=== PATIENT | male | born 1990 | race Caucasian/White ===

== ENCOUNTER 2023-12-31 08:09 | Outpatient (AMB) | payer OTHER, SELFPAY ==
--- NOTE | 2023-12-31 08:10 | AM.OFFWIN_ITS ---
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 Pt states something popped in my knee Started yesterday while running Patient Tobacco Use Status: Never used Tobacco Allergies No Known Allergies Allergy (Verified 12/31/23 08:10) Do you need a note to return to daycare/school/sports/work: No HPI HPI Comments History of Present Illness Details 33 y/o male patient who presents to walk in clinic with c/o right knee pain since yesterday. He was running when he felt POP and sharp pain which radiates to the back of the knee. Describes pain as very sharp, hard to walk, stand or dangling legs to the ground. PFSH Social History Patient Tobacco Use Status: Never used Tobacco Review of Systems Const All systems reviewed & are unremarkable except as noted in HPI and below Physical Exam Vital Signs: Last Vital Signs Temp 98.0 F 12/31/23 08:11 Pulse 66 12/31/23 08:11 BP 116/70 12/31/23 08:11 Pulse Ox 98 12/31/23 08:11 Oxygen Delivery Method Room Air 12/31/23 08:11 BMI result Body Mass Index 27.9 Const General: no acute distress; No comfortable Nutritional Appearance: well nourished Orientation/consciousness: patient oriented x3 Neuro Other: Walks with a slight limp General: patient oriented x3 and moves all extremities Extrem Right lower extremity: normal to inspection, normal capillary refill and knee Details: tenderness Location: of the patella Details: medially and of the popliteal fossa and abnormal ROM Details: pain with active ROM during Details: in extension and in flexion, pain with passive ROM during Details: in flexion and unable to extend lower leg actively; no swelling, no crepitus, no deformity and no unusual warmth Left lower extremity: normal to inspection and full ROM Psych Speech and movement: Normal speech and movement present Assessment & Plan Assessment & Plan (1) Strain of right knee: Code(s): S86.911A - Strain of unspecified muscle(s) and tendon(s) at lower leg level, right leg, initial encounter Qualifiers: Encounter type: initial encounter Qualified Code(s): S86.911A - Strain of unspecified muscle(s) and tendon(s) at lower leg level, right leg, initial encounter Plan: - Knee Brace for support - Ice/Hot - Acetaminophen or Ibuprofen for pain relief - Reviewed Xray images, preliminary no Fracture seen. - Pt reports severe pain and wishes to go to Emergency room for MRI. Coding Level of Care Code New Pt Level 3 (83822) Diagnoses Strain of right knee, initial encounter S86.911A Encounter type: initial encounter Time Spent (min) 15
[2023-12-31 08:11] VITALS: BP 116/70; PULSE 66; TEMP 36.7; O2SAT 98; BMI 27.9
== END 2023-12-31 09:16 | disposition home or self-care (01) ==
PROVIDERS: PCP Pediatrics; Visit Provider Nurse Practitioner Family
DX: S86.911A Strain of unspecified muscle(s) and tendon(s) at lower leg level, right leg, initial encounter (principal)
CPT/HCPCS: 99203

== ENCOUNTER 2023-12-31 08:26 | Outpatient (REF) | payer OTHER, SELFPAY ==
--- NOTE | ~2023-12-31 | XR_ITS ---
EXAMINATION: XR KNEE, RIGHT CLINICAL INFORMATION: 1 day of the right knee pain. [place] pop while running yesterday. COMPARISON: None available. TECHNIQUE: Four views of the right knee. FINDINGS: A small knee joint effusion is present. No fracture. Alignment is anatomic. Joint spaces are maintained. No abnormal soft tissue calcification. XR/XR knee RT 4V IMPRESSION: Small knee joint effusion. No fracture or malalignment.
== END 2023-12-31 08:27 | disposition home or self-care (01) ==
LOC: HO.HMGCX 08:26
PROVIDERS: Visit Provider Nurse Practitioner Family
DX: S86.911A Strain of unspecified muscle(s) and tendon(s) at lower leg level, right leg, initial encounter (principal)
CPT/HCPCS: 73564

== ENCOUNTER 2024-01-01 09:36 | Outpatient (AMB) | payer OTHER, SELFPAY ==
[2024-01-01 09:40] VITALS: BMI 27.9
--- NOTE | 2024-01-01 09:40 | MHC.OFFVIS ---
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 Patient reports he was running and he heard pop in his knee. Currently he is having sharp pain on the front of the knee and behind. Pain is worse when applying pressure to the knee. Having off and on numbness and tingling since the injury. 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 The patient presented to [facility] on 12/[facility]/2023 with a complaint of pain behind the right knee. He reported ?something popped? while running on 12/30/2023. X-rays were obtained. He was placed in an unspecified knee brace for support.? ? While in the office today, the patient reports he was running when he heard a ?pop? from the right knee. He indicates his pain is located along the anterior and posterior aspects of the right knee and describes his pain?as being ?sharp?. He claims to have an increase in pain when applying pressure. He also reports intermittent numbness and tingling that has been present since the injury. ? [facility] Social History (Updated 01/01/24 @ 09:46 by Violette Navarro) Alcohol intake: current Alcohol intake frequency: holidays/special occasions only Patient Tobacco Use Status: Never used Tobacco Current occupational status: employed Current occupation: [employer] Review of Systems Const All systems reviewed & are unremarkable except as noted in HPI and below Physical Exam Vital Signs: BMI result Body Mass Index 27.9 Const General: cooperative and no acute distress Orientation/consciousness: patient oriented x3 Resp Effort & Inspection: normal respiratory effort and able to speak in complete sentences Cardio Peripheral pulses: Peripheral pulses 2+ throughout Skin General skin exam: no rashes or lesions noted Neuro General: patient oriented x3 Extrem Other: Right knee: Mild effusion. No ecchymosis or erythema. No tenderness to palpation along the medial or lateral joint lines. Full extension.?Able to perform about 45 degrees of flexion, however, beyond this point his right knee locks. Unable to access Steiman?s or anterior drawer due to ROM restrictions. NVI.? Assessment & Plan Assessment & Plan (1) Acute meniscal injury of right knee: Code(s): S83.8X1A - Sprain of other specified parts of right knee, initial encounter Category: Medical Plan Mr. Haney is a 33-year-old male who presents in the office today, as a new patient, for an evaluation of right knee pain. The patient presented to the [facility] on 12/31/2023 with a complaint of pain behind the right knee. He reported ?something popped? while running on 12/30/2023. X-rays were obtained. He was placed in an unspecified knee brace for support.? ? While in the office today, the patient reports he was running when he heard a ?pop? from the right knee. He indicates his pain is located along the anterior and posterior aspects of the right knee and describes his pain?as being ?sharp?. He claims to have an increase in pain when applying pressure. He also reports intermittent numbness and tingling that has been present since the injury.? ? The patient will be referred for a stat MRI for question of a bucket handle meniscal tear with active locking. He was given the information to notify the office once the MRI is obtained. Follow-up will be after the stat MRI is obtained, or sooner if needed. ? ? X-rays of the right knee, obtained on 12/31/2023, revealed: ? Small knee joint effusion. No fracture or malalignment.? Orders: Orders MR knee RT wo con Today S83.8X1A - Sprain of other specified parts of right knee, initial encounter Patient Instructions: Scribed by Mitzy Aguilera medical office assistant, for Marisol Martines PA-C on 01/01/2024 at 9:45 am, EST.? Coding Level of Care Code New Pt Level 4 (92814) Diagnoses Acute meniscal injury of right knee S83.8X1A
== END 2024-01-01 10:07 | disposition home or self-care (01) ==
PROVIDERS: Visit Provider Physician Assistant
DX: S83.8X1A Sprain of other specified parts of right knee, initial encounter (principal)
CPT/HCPCS: 99203

== ENCOUNTER → 2024-01-01 09:36 | Outpatient (BNVA) | payer OTHER, SELFPAY | PROVIDERS: Visit Provider Physician Assistant ==

== ENCOUNTER 2024-01-04 19:54 | Outpatient (REF) | payer OTHER, SELFPAY ==
--- NOTE | ~2024-01-04 | MR_ITS ---
EXAMINATION: MR KNEE WITHOUT CONTRAST, RIGHT CLINICAL INFORMATION: S83.8X1A - Sprain of other specified parts of right knee, initial encounter COMPARISON: None available. TECHNIQUE: MRI of the knee without contrast was performed using routine sequences on a high-field scanner. FINDINGS: MENISCI: Medial Meniscus: Intact Lateral Meniscus: Intact LIGAMENTS: Cruciate: There is partial tear of the PCL at its mid substance characterized by diminished thickening with marked increase intrasubstance signal and incomplete disruption of the fibers at the mid substance. ACL is intact. Collateral: Intact EXTENSOR MECHANISM: Intact ARTICULAR CARTILAGE/BONE: No fractures or osseous contusions. Marrow signal is normal. Small bone islands in the distal femoral metaphysis anteriorly and in the tibial plateau. Patellofemoral Compartment: Normal Medial Compartment: Normal Lateral Compartment: Normal JOINT FLUID AND BURSAE: Moderate-sized joint effusion. No Brown's cyst. Edema signal is present in the popliteal fossa posteriorly. MR/MR knee RT wo con IMPRESSION: 1. Partial tear of the PCL. 2. Moderate-sized joint effusion. 3. Intact menisci.
== END 2024-01-04 19:55 | disposition home or self-care (01) ==
LOC: HO.MRI 19:54
PROVIDERS: Visit Provider Physician Assistant
DX: S83.8X1A Sprain of other specified parts of right knee, initial encounter (principal)
CPT/HCPCS: 73721

== ENCOUNTER 2024-01-12 12:28 | Outpatient (AMB) | payer OTHER, SELFPAY ==
--- NOTE | 2024-01-12 12:29 | MHC.OFFVIS ---
Intake Visit Reasons: tele - right knee MRI review Intake Note: Efren is a 33 year old male who presents on the phone for a telehealth visit for a MRI review of his right knee. He states that he has been feeling sore and he has been working on it. Allergies No Known Allergies Allergy (Verified 01/12/24 12:30) HPI HPI tele - right knee MRI review: Details: 33-year-old male who presents today via telehealth for follow-up right knee and review his MRI imaging. While in the office via telehealth, the patient reports that he has been feeling sore but gradual improvement of pain. [facility] Social History (Updated 01/01/24 @ 09:46 by Violette Navraro) Alcohol intake: current Alcohol intake frequency: holidays/special occasions only Patient Tobacco Use Status: Never used Tobacco Current occupational status: employed Current occupation: [employer] Review of Systems Const All systems reviewed & are unremarkable except as noted in HPI and below Physical Exam Extrem Other: Deferred due to being a telehealth visit. Telehealth Telehealth Telehealth Platform: Telephone Location of provider rendering services: practice address Location of patient: address on file Patient Identification confirmed using: Name, : Yes Telehealth method: voice only Patient verbally consented to treatment: Yes Patient verbally consented to billing insurance company: Yes Patient informed of any privacy concerns related to visit: Yes Assessment & Plan Assessment & Plan (1) Partial tear of posterior cruciate ligament of knee: Code(s): S83.529A - Sprain of posterior cruciate ligament of unspecified knee, initial encounter Category: Medical Plan: Mr. Haney 33-year-old male who presents today via telehealth for follow-up of bucket handle meniscal tear of the right knee and review his MRI imaging. I last saw the patient in the office on 01/01/2024, when x-rays of the right knee were obtained.? While in the office via telehealth, the patient reports that he has been feeling sore and has been working on it.? A referral for physical therapy was made in the office today. Follow-up will be in 4-6 weeks, or sooner if needed.? An MRI of the right knee which were obtained on 01/04/2024 and were reviewed by me, Marisol Martines PA-C, revealed partial tear of the PCL, moderate-sized joint effusion and intact meniscus.? Orders: Orders PT Evaluation and Treatment Today S83.529A - Sprain of posterior cruciate ligament of unspecified knee, initial encounter Patient Instructions: Scribed by Petr Obrien medical and health services manager, for Marisol Martines PA-C on 01/12/2024 at?12:30 PM EST.? Coding Level of Care Code Tele Est Pt Level 3 (26579) Diagnoses Partial tear of posterior cruciate ligament of knee S83.529A
== END 2024-01-12 12:38 | disposition home or self-care (01) ==
LOC: HO.HOS 12:28
PROVIDERS: Visit Provider Physician Assistant
DX: S83.529A Sprain of posterior cruciate ligament of unspecified knee, initial encounter (principal)
CPT/HCPCS: 99213

== ENCOUNTER → 2024-01-12 12:28 | Outpatient (BNVA) | payer OTHER, SELFPAY | PROVIDERS: Visit Provider Physician Assistant ==

== ENCOUNTER 2024-02-16 16:00 | Outpatient (RCR) | payer OTHER, SELFPAY ==
--- NOTE | 2024-08-03 09:51 | MHC.PT.DC ---
[facility] [place] Office [place] Office [place] Office [address] Porsha Purcell [address] [phone] F: [phone] F: [phone] F: [phone] F: [phone] Physical Therapy Discharge Report Diagnosis: Partially torn PCL Date of Surgery: Date of Evaluation: 01/26/24 Date of Discharge: 02/22/24 Treatments to Date: 4 Cancellations to Date: No Shows to Date: Discharge Status: Patient Elected to Stop Discharge Summary: Pt elected to stop due to high co-pay 02/15; Pt fatigued after exs. Pt tish 1 x a week co pay is high. 02/01; Pt HS tight. Pt can flex knee better with ankle D/F. Pt fatigued after hip exs. Patient is a 33 year old R handed male who presents with s/s consistent with PCL sprain, knee pain. He works with daily job demands including concrete finishing. He also plays softball which is related to his mechanism of injuyr. Patient past medical history is otherwise unremarkable. Current impairments include pain, flexibility, ROM, strength, activity tolerance and functional mobility. Functional limitations include decreased ability to walk, negotiate stairs, squat, kneel, run and play softball. Patient is motivated with good rehab potential. Skilled PT will address impairments and functional limitations in order to achieve goals. Electronically signed by: Efrain Briones, PT Please sign and return to therapist. Thank you for your referral.
== END 2024-08-03 09:51 | disposition home or self-care (01) ==
LOC: HO.PTCHIC 16:00
PROVIDERS: Visit Provider Physician Assistant
DX: S83.521D Sprain of posterior cruciate ligament of right knee, subsequent encounter (principal)
CPT/HCPCS: 97110; 97140; 97161; 97535

== ENCOUNTER 2024-03-01 15:29 | Outpatient (AMB) | payer OTHER, SELFPAY ==
--- NOTE | 2024-03-01 15:32 | A.OFFVIS_ITS ---
Intake Visit Reasons: OV - right knee pain Intake Note: Efren is a 33 year old male who presents today for a follow up of his right knee pain, DOI 12/30/23. Patient reports he is doing better today. He is finding relief with using his brace when he is doing certain activities. Allergies No Known Allergies Allergy (Verified 03/01/24 15:33) HPI HPI OV - right knee pain: Details: 33-year-old male who presents in the office today for a follow-up of right knee pain. I last saw the patient in the office on 01/01/24 when an order for an MRI was made. ? ? While in the office today, the patient reports he is doing better today. He states he finds relief with the use of his brace with certain activities. ? [facility] Social History Alcohol intake: current Alcohol intake frequency: holidays/special occasions only Patient Tobacco Use Status: Never used Tobacco Current occupational status: employed Current occupation: [employer] Review of Systems Const All systems reviewed & are unremarkable except as noted in HPI and below Physical Exam Const General: cooperative, healthy appearing and no acute distress Resp Effort & Inspection: normal respiratory effort and able to speak in complete sentences Cardio Rate: regular rate Peripheral pulses: Peripheral pulses 2+ throughout GI Palpation (GI): Soft to palpation Skin Lesions: no lesions Rashes: no rashes Extrem Other: Right knee: Mild effusion. No ecchymosis or erythema. No tenderness to palpation along the medial or lateral joint lines. Full extension.?Able to perform about 45 degrees of flexion, however, beyond this point his right knee locks. Unable to access Steiman?s or anterior drawer due to ROM restrictions. NVI.? Assessment & Plan Assessment & Plan (1) Partial tear of posterior cruciate ligament of knee: Code(s): S83.529A - Sprain of posterior cruciate ligament of unspecified knee, initial encounter Category: Medical Plan Mr. Haney is a 33-year-old male who presents in the office today for a follow-up of right knee pain. I last saw the patient in the office on 01/01/24 when an order for an MRI was made. ? ? While in the office today, the patient reports he is doing better today. He states he finds relief with the use of his brace with certain activities.? ? Overall, the patient is doing well. He confirms attending three sessions of physical therapy but has discontinued for the moment due to high copays. He is interested in returning to softball; therefore, I have provided him with a playmaker knee brace, off the shelf. He was encouraged to wear this while playing sports. A recommendation for him to return to sports would be that he needs to be nearly pain free. If he begins to limp, he needs to discontinue playing immediately. He may return back to normal activities as tolerated, using pain as his guide. Follow-up will be PRN, or sooner if needed.? ? MRI of the right knee, obtained on 01/04/24, revealed: ? 1. Partial tear of the PCL.? 2. Moderate-sized joint effusion.? 3. Intact menisci.? Patient Instructions: Scribed by Mitzy Aguilera, medical clinic manager, for Marisol Martines PA-C on 03/01/2024 at 3:38 pm, EST.? Coding Level of Care Code Est Pt Level 3 (98244) Diagnoses Partial tear of posterior cruciate ligament of knee S83.529A
== END 2024-03-01 15:52 | disposition home or self-care (01) ==
PROVIDERS: Visit Provider Physician Assistant
DX: S83.521A Sprain of posterior cruciate ligament of right knee, initial encounter (principal)
CPT/HCPCS: 99213

== ENCOUNTER → 2024-03-01 15:29 | Outpatient (BNVA) | payer OTHER, SELFPAY | PROVIDERS: Visit Provider Physician Assistant ==